=== PATIENT | female | born 1940 | race Caucasian/White ===

== ENCOUNTER 2018-07-23 20:09 | Emergency (ER) | payer MEDICARE, BC ==
[2018-07-23 20:53] VITALS: RESP 20; TEMP 97.5
[2018-07-23 21:01] LABS: HEMATOCRIT 50 % (35-47); HEMOGLOBIN 15.8 gm/dl (12.0-15.5); MEAN CORPUSCULAR HEMOGLOBIN 29.4 pg (27.0-32.0); MEAN CORPUSCULAR HGB CONC 31.9 gm/dl (32.0-36.0); MEAN CORPUSCULAR VOLUME 92 fL (81-99)
[2018-07-23 21:03] LABS: INR 0.95 (0.86-1.12)
[2018-07-23 21:08] LABS: ALBUMIN 3.4 gm/dl (3.4-5.0); BILIRUBIN,TOTAL 0.3 mg/dl (0.2-1.0); CALCIUM 8.8 mg/dl (8.5-10.1); CREATININE 1.02 mg/dl (0.60-1.00); POTASSIUM 3.3 mMol/L (3.5-5.1); TOTAL PROTEIN 8.1 gm/dl (6.4-8.2)
[2018-07-23 21:11] LABS: BAND NEUTROPHILS % (MANUAL) 1 %; BASOPHILS % (MANUAL) 0 % (0-3); BURR CELLS PRESENT; EOSINOPHILS % (MANUAL) 2 % (0-9); LYMPHOCYTES % (MANUAL) 17 % (10-50); MONOCYTES % (MANUAL) 9 % (0-12); NEUTROPHILS % (MANUAL) 71 % (37-80); POIKILOCYTOSIS SLIGHT AMT
[2018-07-23 22:35] VITALS: BP 150/91; PULSE 114; O2SAT 96
== END 2018-07-23 21:55 | disposition home or self-care (01) | DRG 66 ==
LOC: ED 20:09 → SUPCPDRO 20:09 → ED 21:55
DX: I63.9 Cerebral infarction, unspecified (principal)
CPT/HCPCS: 36415; 70450; 80053; 85007; 85027; 85610; 93005; 99284

== ENCOUNTER 2018-07-24 12:45 | Emergency (ER) | payer MEDICARE, BC ==
[2018-07-24 13:03] VITALS: O2SAT 96
[2018-07-24 15:33] VITALS: BP 183/121; PULSE 106; RESP 18
== END 2018-07-24 13:30 | disposition home or self-care (01) | DRG 68 ==
LOC: ED 12:45
DX: I65.22 Occlusion and stenosis of left carotid artery (principal)
CPT/HCPCS: 99282

== ENCOUNTER 2018-10-31 05:14 | Emergency (ER) | payer MEDICARE, BC ==
[2018-10-31 05:28] VITALS: PULSE 87; TEMP 97.6
[2018-10-31 06:36] VITALS: RESP 20; O2SAT 97
[2018-10-31] MEDS ORDERED: CLONIDINE 0.1 MG TAB PO ONE (07:09)
[2018-10-31] MEDS ORDERED: HYDRALAZINE HYDROCHLORIDE 20 MG/ML SOL IM ONE (07:09)
[2018-10-31] MEDS ORDERED: HYDRALAZINE HYDROCHLORIDE 20 MG/ML SOL ONE (07:12)
[2018-10-31] MEDS ORDERED: KETOROLAC TROMETHAMINE 30 MG/ML SOL IM ONE (07:12)
[2018-10-31] MEDS ORDERED: CLONIDINE 0.1 MG TAB ONE (07:12)
[2018-10-31] MEDS ORDERED: KETOROLAC TROMETHAMINE 30 MG/ML SOL ONE (07:13)
[2018-10-31 10:50] VITALS: BP 162/80
== END 2018-10-31 10:37 | DRG 563 ==
LOC: ED 05:14
DX: S82.62XA Displaced fracture of lateral malleolus of left fibula, initial encounter for closed fracture (principal); W01.0XXA Fall on same level from slipping, tripping and stumbling without subsequent striking against object, initial encounter
CPT/HCPCS: 29515; 73610; 96372; 99285; J0360; J1885; A9270-GY